=== PATIENT | male | born 1965 | race Caucasian/White ===

== ENCOUNTER 2020-03-29 20:20 | Emergency (ER) | payer OTHER, SELFPAY ==
--- NOTE | 2020-03-29 | ECG_ITS ---
Test Reason : CHEST PAIN Blood Pressure : / mmHG Vent. Rate : 087 BPM Atrial Rate : 087 BPM P-R Int : 156 ms QRS Dur : 082 ms QT Int : 398 ms P-R-T Axes : 056 -21 089 degrees QTc Int : 478 ms Sinus rhythm with frequent Premature ventricular complexes Abnormal ECG No previous ECGs available Referred By: Generic ED Physician Electronically Signed By:SRUTHI GAMA MD
--- NOTE | 2020-03-29 | XR_ITS ---
EXAMINATION: XR CHEST CLINICAL INFORMATION: Chest pain COMPARISON: None TECHNIQUE: Frontal view of the chest was obtained. FINDINGS: Heart size borderline enlarged. Some atelectasis seen in the posterior basal segment of the left lower lobe. No gross consolidations or effusions or lung masses are seen. There is no evidence of CHF. XR/XR chest 1V IMPRESSION: Left basilar atelectasis.
[2020-03-29 20:24] VITALS: BP 160/80; PULSE 50; RESP 16; TEMP 37; O2SAT 95; BMI 51.7
--- NOTE | 2020-03-29 20:58 | PC.NURSE ---
EKG COMPLETED IN TRIAGE BY THIS RN. REVIEWED AND SIGNED BY ED MD.
--- NOTE | 2020-03-29 21:41 | ED.CHESTPAIN ---
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 This chest pain has been constant and is not associated with any headaches, dizziness, shortness of breath, GI symptoms, or symptoms. Patient is notable for having 1 kidney after donating the other to his mother many years ago and states he does not have any medical conditions, however he has not followed up with a primary care doctor since the kidney donation. Related Data Allergies Allergy/AdvReac Type Severity Reaction Status Date / Time No Known Allergies Allergy Verified 03/29/20 20:22 Review of Systems Review of Systems: Pertinent positives and negatives as stated in HPI 10 point review of systems is otherwise negative. PMFSH Past Medical History Source: nursing notes reviewed Social History Social History Alcohol intake: never Smoked in Last 30 Days: No Use of substances other than those prescribed or required for medical reasons: No Advance Directives: No Advance Directives Information Provided: Yes Physical Exam Vital Signs: Vital Signs: Last Vital Signs Temp 98.1 F 03/29/20 22:00 Pulse 62 03/30/20 00:08 Resp 16 03/30/20 00:08 BP 159/52 H 03/30/20 00:08 Pulse Ox 96 03/30/20 00:08 Body Mass Index 51.7 VITAL SIGNS: Reviewed. GENERAL: Well developed, well nourished, in no acute distress. HEAD: Normocephalic/atraumatic, EYES: PERRLA, EOMI intact without pain, no nystagmus/pallor/icterus noted EARS: Ext canals without abnormality, TMs non-bulging and non-erythematous NOSE: Nares patent bilateral OROPHARYNX: no oral lesions noted, posterior pharynx clear and non-erythematous without noted tonsillar enlargement/erythema/exudates NECK: Supple, no adenopathy LUNGS: Normal breath sounds. No adventitious sounds or accessory muscle use. SpO2<95> CARDIOVASCULAR: Regular rate and rhythm without noted murmurs, no JVD or lower extremity edema. ABDOMEN: Soft, non-tender, non-distended with bowel sounds. No rigidity. No guarding. No palpable masses or hernias noted MUSCULOSKELETAL: No tenderness, deformities, or effusions noted on gross inspection. EXTREMITIES: No cyanosis, clubbing or edema. SKIN: Inspection of the skin reveals no rashes, ulcerations, jaundice, pallor, or petechiae. NEUROLOGIC: Alert and oriented x 4. Strength and sensation to light touch were grossly intact x 4. Course Course Course Narrative: This is a 54-year-old male with history and clinical presentation consistent with likely musculoskeletal strain but will rule out pulmonary/ cardiac etiologies. On review of all laboratory investigation there was a noted elevation of the D-dimer in follow-up CTA of the chest was negative for any acute PE or pulmonary pathology. No evidence infection, anemia and serial troponins although mildly elevated are without evidence of ischemic changes on EKG. patient was strongly encouraged to follow-up with a primary care provider but was otherwise given instructions for muscle strain to the anterior chest wall. He was provided with strict return precautions. MDM - Chest Pain Lab Data Result diagrams: 03/29/20 21:42 03/29/20 21:42 Labs: Lab Results 03/29/20 03/29/20 03/29/20 Range/Units 21:42 21:42 21:42 WBC 10.7 (4.8-10.8) X10*3/uL RBC 5.30 (4.60-5.80) X10*6/uL Hgb 16.3 (14.0-18.0) g/dl Hct 46.0 (42-52) % MCV 86.8 (80-98) fL MCH 30.8 (27.0-33.0) pg MCHC 35.4 (31.0-36.0) g/dl RDW 13.0 (11.0-16.0) % Plt Count 206 (160-400) X10*3/uL MPV 10.4 (9.4-12.4) fL Immature Gran % (Auto) 0.3 (0.0-0.4) % Neut % (Auto) 69.0 (45-73) % Lymph % (Auto) 19.7 L (20-40) % Calloway % (Auto) 6.3 (2-11) % Eos % (Auto) 4.3 H (0-4) % Baso % (Auto) 0.4 (0-2) % Lymph # (Auto) 2.1 (1.2-4.9) X10*3/uL Calloway # (Auto) 0.7 (0.1-1.2) X10*3/uL Eos # (Auto) 0.5 H (0.0-0.4) X10*3/uL Baso # (Auto) 0.0 (0.0-0.2) X10*3/uL Abs Immat Gran (auto) 0.03 (0.00-0.03) X10*3/uL Absolute Neuts (auto) 7.4 (2.0-8.3) X10*3/uL Absolute Nucleated RBC 0.000 (0.0-0.012) X10*3/uL Nucleated RBC % (auto) 0.0 (0.0-0.2) /100WBC D-Dimer 399 NG/ML Sodium 139 (135-145) mmol/L Potassium 5.0 (3.3-5.1) mmol/l Chloride 104 (96-108) mmol/L Carbon Dioxide 24 (22-29) mmol/L Anion Gap 16 (12-20) BUN 17 H (9-16) mg/dL Creatinine 1.16 (0.5-1.4) mg/dL Estim Creat Clear Calc 108.2 Estimated GFR > 60 Random Glucose 90 (60-115) mg/dL Calcium 9.0 (8.4-10.2) mg/dL Total Bilirubin 0.8 (0.0-1.0) mg/dL AST 38 H (5-37) U/L ALT 36 (0-40) U/L Alkaline Phosphatase 72 (39-117) U/L Troponin I High Sens (<3.5-35.0) ng/L Total Protein 8.0 (6.5-8.0) g/dL Albumin 4.4 (3.5-5.0) g/dL 03/29/20 03/30/20 Range/Units 21:42 01:02 WBC (4.8-10.8) X10*3/uL RBC (4.60-5.80) X10*6/uL Hgb (14.0-18.0) g/dl Hct (42-52) % MCV (80-98) fL MCH (27.0-33.0) pg MCHC (31.0-36.0) g/dl RDW (11.0-16.0) % Plt Count (160-400) X10*3/uL MPV (9.4-12.4) fL Immature Gran % (Auto) (0.0-0.4) % Neut % (Auto) (45-73) % Lymph % (Auto) (20-40) % Calloway % (Auto) (2-11) % Eos % (Auto) (0-4) % Baso % (Auto) (0-2) % Lymph # (Auto) (1.2-4.9) X10*3/uL Calloway # (Auto) (0.1-1.2) X10*3/uL Eos # (Auto) (0.0-0.4) X10*3/uL Baso # (Auto) (0.0-0.2) X10*3/uL Abs Immat Gran (auto) (0.00-0.03) X10*3/uL Absolute Neuts (auto) (2.0-8.3) X10*3/uL Absolute Nucleated RBC (0.0-0.012) X10*3/uL Nucleated RBC % (auto) (0.0-0.2) /100WBC D-Dimer NG/ML Sodium (135-145) mmol/L Potassium (3.3-5.1) mmol/l Chloride (96-108) mmol/L Carbon Dioxide (22-29) mmol/L Anion Gap (12-20) BUN (9-16) mg/dL Creatinine (0.5-1.4) mg/dL Estim Creat Clear Calc Estimated GFR Random Glucose (60-115) mg/dL Calcium (8.4-10.2) mg/dL Total Bilirubin (0.0-1.0) mg/dL AST (5-37) U/L ALT (0-40) U/L Alkaline Phosphatase (39-117) U/L Troponin I High Sens 7.8 9.3 (<3.5-35.0) ng/L Total Protein (6.5-8.0) g/dL Albumin (3.5-5.0) g/dL ECG Data ECG #1: Attestation: I personally reviewed and interpreted this ECG as follows: Prior ECG tracings: not available for review Interpretation: Sinus rhythm with PVCs, HR- 87, no evidence of acute ischemia, ND/QRS are within normal limits. Discharge Plan Discharge Clinical Impression: Muscle strain of anterior chest wall Patient Disposition: Home, Self-Care Instructions: Muscle Strain (ED) Additional Instructions: 1. Tylenol 1000 mg, por v?a oral, cada 6 horas seg?n sea necesario para controlar el dolor. No exceda los 4000 mg en 24 horas. 2. Recomendar?a la aplicaci?n de parches de lidoca?na, estos est?n disponibles sin receta en todos los [facility] / [facility], y deben aplicarse en el ?pati de m?xima sensibilidad frederick se indica en el empaque exterior. 3. Por favor, establezca la atenci?n con un proveedor de atenci?n primaria lo antes posible para nadya reevaluaci?n. El paciente y / o la chinmay reconocen que comprenden los resultados (seg?n corresponda), el diagn?stico, el plan de tratamiento, la necesidad de seguimiento y los s?ntomas que deber?an impulsar el regreso a la kira de emergencias. Referrals: Physician,None [Primary Care Provider] - 2 days (Re-evaluation of muscle strain to left anterior chest wall) Print Language: Montenegrin
[2020-03-29 21:43] VITALS: BP 179/71; PULSE 92; RESP 20; O2SAT 97
[2020-03-29 21:52] LABS: MANUAL DIFF FLAG NO
[2020-03-29 21:53] LABS: Basophils Percent Auto 0.4 % (0-2); Eosinophils Absolute Auto 0.5 X10*3/uL (0.0-0.4); Eosinophils Percent Auto 4.3 % (0-4); Hemoglobin 16.3 g/dl (14.0-18.0); Imm Gran Abs Auto 0.03 X10*3/uL (0.00-0.03); Imm Gran Pct Auto 0.3 % (0.0-0.4); Lymphocytes Absolute Auto 2.1 X10*3/uL (1.2-4.9); Lymphocytes Percent Auto 19.7 % (20-40); Mean Corpuscular HGB Conc 35.4 g/dl (31.0-36.0); Mean Corpuscular Hemoglobin 30.8 pg (27.0-33.0); Mean Corpuscular Volume 86.8 fL (80-98); Mean Platelet Volume 10.4 fL (9.4-12.4); Monocytes Absolute Auto 0.7 X10*3/uL (0.1-1.2); Monocytes Percent Auto 6.3 % (2-11); Neutrophils Absolute Auto 7.4 X10*3/uL (2.0-8.3); Platelet Count 206 X10*3/uL (160-400); White Blood Count 10.7 X10*3/uL (4.8-10.8)
[2020-03-29 22:00] VITALS: BP 156/62; PULSE 84; RESP 20; TEMP 36.7; O2SAT 95
[2020-03-29] MEDS: Acetaminophen 325 MG TABLET 975 MG PO (22:29)
[2020-03-29 22:30] LABS: Troponin-I High Sensitivity 7.8 ng/L (<3.5-35.0)
--- NOTE | 2020-03-29 22:38 | PC.NURSE ---
patient a&ox3, ekg performed, iv inserted, labs drawn, cardiac/vascular sonographer nsr with frequent pvcs, vitals stable, pt medicated per order, will continue to monitor.
[2020-03-29 22:40] LABS: D Dimer 399 NG/ML
[2020-03-29 23:14] LABS: Alanine Aminotransferase 36 U/L (0-40); Albumin Level 4.4 g/dL (3.5-5.0); Alkaline Phosphatase 72 U/L (39-117); Anion Gap 16 (12-20); Aspartate Amino Transferase 38 U/L (5-37); Bilirubin Total 0.8 mg/dL (0.0-1.0); Blood Urea Nitrogen 17 mg/dL (9-16); Carbon Dioxide 24 mmol/L (22-29); Chloride 104 mmol/L (96-108); Creatinine Clr Calc Pharmacy 108.2; Estimated Glomerular Filt Rate > 60; Glucose Random 90 mg/dL (60-115); Sodium 139 mmol/L (135-145)
--- NOTE | 2020-03-29 23:36 | CT_ITS ---
EXAMINATION: CT ANGIOGRAM CHEST CLINICAL INFORMATION: Chest discomfort COMPARISON: Chest x-ray 03/29/2020 TECHNIQUE: Multiple axial images were obtained through the chest after the administration of 65 mL of Omnipaque 350 intravenous contrast. Extensive vascular post-processing including two-dimensional and three-dimensional reformatted images were created and reviewed on an independent workstation. This CT examination was performed using dose optimization techniques as appropriate, variously including the following: *Automated exposure control *Adjustment of mA and/or kV according to patient size (this includes techniques or standardized protocols for targeted exams where dose is matched to indication/reason for exam; i.e. extremities or head) *Use of iterative reconstruction technique DLP: 564 mGy-cm FINDINGS: No filling defects are seen in the main, lobar, or segmental pulmonary arteries to suggest the presence of pulmonary emboli. Assessment of the distal vasculature is suboptimal due to patient body habitus. No regions of consolidation bilaterally. No pneumothorax or pleural effusion. Visualized thyroid gland appears grossly unremarkable. There are subcentimeter mediastinal lymph nodes within the range of normal variation. Cardiac size is within normal limits; no pericardial effusion. The aorta is unremarkable. No axillary lymphadenopathy is present. Visualized portions of the upper abdomen are within normal limits. No acute osseous findings are seen. Degenerative changes are noted in the spine. CT/CT angio chest IMPRESSION: No pulmonary embolus identified.
[2020-03-30 00:08] VITALS: BP 159/52; PULSE 62; RESP 16; O2SAT 96
[2020-03-30] MEDS: 0.9 % Sodium Chloride 1,000 ML 1000 ML IV (00:08)
--- NOTE | 2020-03-30 00:12 | PC.NURSE ---
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 pt still experiencing left sided chest pain 5/10. pain increased with movement. trigeminy of pvc's on monitor.
[2020-03-30] MEDS: iohexoL 350 MG/ML 100 ML INFUS..BTL 65 ML IV (00:19)
[2020-03-30 01:44] LABS: Troponin-I High Sensitivity 9.3 ng/L (<3.5-35.0)
== END 2020-03-30 02:32 | disposition home or self-care (01) ==
PROVIDERS: Emergency Provider Student in an Organized Health Care Education/Training Program
DX: R07.89 Other chest pain (principal)
CPT/HCPCS: 36415; 71045; 71275; 80053; 84484; 85025; 85379; 93005; 96360; 99284; Q9967

== ENCOUNTER 2023-12-27 11:54 | Emergency (ER) | payer OTHER, SELFPAY ==
--- NOTE | ~2023-12-27 | US_ITS ---
EXAMINATION: US TRIPLEX UPPER EXTREMITY, LEFT CLINICAL INFORMATION: Unilateral arm swelling COMPARISON: None available. TECHNIQUE: Color-flow triplex imaging with spectral analysis and compression Doppler was performed on the left upper extremity. FINDINGS: The left internal jugular, subclavian, and axillary veins are patent and free of thrombus. The imaged segment of the left brachiocephalic vein is patent. Spectral doppler waveforms are normal. The brachial, basilic, cephalic, radial, and ulnar veins are patent and compressible. US/US venous duplex UE LT IMPRESSION: No evidence of deep venous thrombosis involving the left upper extremity. Electronically signed by: Kemal Colindres MD 12/27/2023 02:22 PM EDT
--- NOTE | ~2023-12-27 | XR_ITS ---
EXAMINATION: XR ELBOW, LEFT CLINICAL INFORMATION: Atraumatic pain COMPARISON: None available. TECHNIQUE: Three views of the left elbow. FINDINGS: No fracture. No dislocation. Joint space is normal. No joint effusion. Small spur at the olecranon at the insertion of the triceps tendon. XR/XR elbow LT min 3V IMPRESSION: Normal left elbow. Electronically signed by: Manuelito Schneider MD 12/27/2023 06:07 PM EDT RP
--- NOTE | ~2023-12-27 | XR_ITS ---
EXAMINATION: XR WRIST, LEFT CLINICAL INFORMATION: Pain COMPARISON: None available. TECHNIQUE: Four views of the left wrist. FINDINGS: No acute fracture, subluxation, or suspicious focal lesion. No abnormal soft tissue calcification. No significant erosive changes. There is soft tissue swelling XR/XR wrist LT min 3V IMPRESSION: No fracture or subluxation. There is soft tissue swelling Electronically signed by: Torres Robison MD 12/27/2023 06:08 PM EDT
[2023-12-27 12:39] VITALS: BP 152/78; PULSE 82; RESP 18; TEMP 36.8; O2SAT 96; BMI 51.9
--- NOTE | 2023-12-27 12:39 | ED_ITS ---
HPI - Extremity Injury (Upper) General Chief Complaint: Extremity Problem Stated Complaint: R arm swelling/pain Time Seen by Provider: 12/27/23 16:07 History of Present Illness ED Provider: Fernando BEE narrative: The patient is a 58-year-old male who says that over the last 2 weeks he has had worsening pain in his left wrist. There was no injury associated with the pain. The pain has gotten worse over the last 2 weeks and he feels it has also spread to his left elbow. He also had no left elbow injury. He does not think he has had a fever. He does not know of any past medical history but he has not seen a doctor in a long time and he has no primary care doctor. The patient has a history of gout. In the past he has only had gout in his legs. He has never had anything like gout in his upper extremeties. The patient has only one kidney. He donated a kidney to a family member. Related Data Previous Rx's ?Medication ?Instructions ?Recorded morphine 15 mg immediate release 15 mg PO Q6H PRN pain #12 tabs 12/27/23 tablet prednisone 5 mg tablet 5 mg PO DIRECTED #78 tabs 12/27/23 Allergies Allergy/AdvReac Type Severity Reaction Status Date / Time No Known Allergies Allergy Verified 12/27/23 12:42 Review of Systems 2 Review of Systems: Yes all other systems are reviewed and are negative [facility] Social History Social History Alcohol intake: never Advance Directives: No Advance Directives Information Provided: Yes Physical Exam 2 Vital Signs: Vital Signs: Last Vital Signs Temp 98.3 F 12/27/23 18:31 Pulse 59 12/27/23 18:31 Resp 18 12/27/23 18:31 BP 159/84 H 12/27/23 18:31 Pulse Ox 97 12/27/23 18:31 O2 Del Method Room Air 12/27/23 18:31 BMI result Body Mass Index 51.9 Const: Other: THe patient is a large 58 year-old male. BMI is 51.9. He is awake, alert, pleasant cooperative. Orientation/consciousness: patient oriented x3 HEENT: Head: Yes normal to inspection Mouth: Normal oral and palatal mucosa present and moist mucous membranes Eyes: General: appearance normal, both eyes and all related structures E yelids: Yes eyelids normal Conjunctivae: conjunctivae normal Pupils: E qual, round and reactive pupils present EOM: EOMs intact bilaterally Neck: Neck: Yes full ROM and Yes no lymphadenopathy Resp: Effort & Inspection: normal respiratory effort Auscultation: clear to auscultation bilaterally Cardio: Other: No murmur Rate: regular rate Rhythm: regular rhythm Heart sounds: S1 normal heart sound present and S2 normal heart sound present Skin: Other: Mild generalized soft tissue swelling to the left wrist and forearm. No erythema. Neuro: Other: THe patient has intect motor and sensory function of the left arm except as limited by pain. General: patient oriented x3 Cranial nerves: Yes CN's II-XII intact bilaterally and Yes Equal, round and reactive pupils present Extrem: Other: THere is some mild generalized tenderness and swelling at the left wrist and forearm and slide swelling in the area of the left olecranon bursa. The patient seems most tender at the left wrist. Range of motion of the left is reduced but he is able to put the wrist through a moderate range of motion. There does not seem to have a clear area of specific focal tenderness. ?The patient has some mild tenderness of the left forearm generally. He has some mild swelling of the left olecranon bursa but this is quite minimal. No clear erythema at any location on the left arm.. Course Course Course Narrative: This is a Rapid Medical Examination (RME) performed by Graeme Carty PA-C in triage. Full HPI, ROS, assessment and treatment plan per primary provider in the Main ED. 58 yo male here for eval of LUE swelling x 2 wks. reports swelling started in his left wrist and is now extending up his extremity to his left elbow. no injury/ trauma. denies known tick or insect bites. denies hx of similar. + noted swelling to LUE from digits to elbow. ttp. Plan: labs, venous duplex Medications Administered Discontinued Medications Generic Name Dose Route Start Last Admin Trade Name Freq PRN Reason Stop Dose Admin Prednisone 60 mg 12/27/23 18:15 12/27/23 18:30 Prednisone 20 Mg Tablet PO 12/27/23 18:16 Not Given ONCE ONE Medical Decision Making Medical Decision Making MDM Narrative: The patient is a 58-year-old male with a history of gout. He also has on;y one kidney. In previous episodes of gout he has only had manifestations in his legs. He now presents with a traumatic left arm pain that seems maximal around the left wrist which has been getting worse over the last two weeks. He has not had a fever. An ultrasound of the left arm was ordered at triage which is negative. X-rays of the left wrist and elbow are negative. His uric acid is elevated at 10.2. He has a white count of 9.7 with a normal differential. ?ESR is 30. ?CRP is 3.31. Given the absence of fever and the absence of an elevation of his white count or left shift and the absence of any erythema I think infection is less likely in this patient. He does not consider himself at risk for tick-borne illness. He says he does not go in the [place] and does not consider himself at risk for exposure to ticks in anyway. I suspect that this is probably a manifestation of some form of gout. He will be started on prednisone he will be given a sling. He's given a prescription for morphine tablets to use as needed for pain. He does not have a primary care doctor. He is given information about local primary care offices and hopes of getting a new primary care doctor. He will be placed on a date tapering course of prednisone starting at 60 mg and going down 5 mg each day until done. He ?should return if worse. Lab Data 12/27/23 12:54 12/27/23 12:54 Labs: Lab Results 12/27/23 Range/Units 12:54 WBC 9.7 (4.8-10.8) X10*3/uL RBC 5.16 (4.60-5.80) X10*6/uL Hgb 15.2 (14.0-18.0) g/dl Hct 43.4 (42.0-52.0) % MCV 84.1 (80.0-98.0) fL MCH 29.5 (27.0-33.0) pg MCHC 35.0 (31.0-36.0) g/dl RDW 14.1 (11.0-16.0) % Plt Count 238 (160-400) X10*3/uL MPV 9.6 (9.4-12.4) fL Immature Gran % (Auto) 0.3 (0.0-0.4) % Neut % (Auto) 67.1 (45-73) % Lymph % (Auto) 20.0 (20-40) % Wheeler % (Auto) 8.6 (2-11) % Eos % (Auto) 3.5 (0-4) % Baso % (Auto) 0.5 (0-2) % Lymph # (Auto) 1.9 (1.2-4.9) X10*3/uL Wheeler # (Auto) 0.8 (0.1-1.2) X10*3/uL Eos # (Auto) 0.3 (0.0-0.4) X10*3/uL Baso # (Auto) 0.1 (0.0-0.2) X10*3/uL Abs Immat Gran (auto) 0.03 (0.00-0.03) X10*3/uL Absolute Neuts (auto) 6.5 (2.0-8.3) x10*3/uL Absolute Nucleated RBC 0.000 (0.0-0.012) X10*3/uL Nucleated RBC % (auto) 0.0 (0.0-0.2) /100WBC ESR 30 H (0-15) MM/HR Sodium 135 (135-145) mmol/L Potassium 4.4 (3.3-5.1) mmol/L Chloride 104 (96-108) mmol/L Carbon Dioxide 24 (22-29) mmol/L Anion Gap 11 L (12-20) BUN 21 H (9-16) mg/dL Creatinine 1.33 (0.5-1.4) mg/dL Estim Creat Clear Calc 90.2 Estimated GFR 56 Random Glucose 108 (60-115) mg/dL Uric Acid 10.2 H (3.4-7.0) mg/dL Calcium 10.1 D (8.4-10.2) mg/dL Magnesium 1.9 (1.6-2.6) mg/dL Total Bilirubin 0.4 (0.0-1.0) mg/dL AST 15 (5-37) U/L ALT 15 (0-40) U/L Alkaline Phosphatase 99 (39-117) U/L C-Reactive Protein 3.31 H (< or = 0.50) mg/dL B-Natriuretic Peptide < 10 (<100) pg/mL Total Protein 8.6 H (6.5-8.0) g/dL Albumin 4.1 (3.5-5.0) g/dL Discharge Plan Discharge Clinical Impression: Pain and swelling of left wrist, Gout, Hyperuricemia Patient Disposition: Home, Self-Care Instructions: Gout (ED) Additional Instructions: I believe that the pain in your left arm and wrist is probably because of something like gout. You has been started on a course of prednisone, a steroid medication which should help reduce the inflammation and pain of the gout. Please take the entire course of prednisone until done. This is a tapering course of medication. You will be taking 12 tablets tomorrow, then 11 tablets of the next day, then 1 tablet less per day until done. You may take 2 extra-strength acetaminophen (Tylenol) up to 3 times a day as needed for pain. In addition I have sent a prescription for morphine tablets that you may use as well as needed for pain. Please try to use these mostly at night or when you are resting and really need pain relief. No driving on morphine. Use the sling to rest the arm. Please work to get a regular primary care doctor. You have been given some information about primary care practices in the area. Return to the emergency room if significantly worse. Prescriptions: New prednisone 5 mg tablet 5 mg PO DIRECTED Qty: 78 0RF Rx Instructions: Take 12 tablets by mouth for 1 day, then take 11 tablets by mouth for 1 day, then take 10 tablets by mouth for 1 day, continue to take 1 tablet less per day until done. morphine 15 mg tablet 15 mg PO Q6H PRN (Reason: pain) Qty: 12 0RF Rx Instructions: Partial Fill upon patient request. Interventions: ED Discharge Assessment Last Done: 12/27/23 18:31 Discharge Date/Time: 12/27/23 18:36 Print Language: Serbian
[2023-12-27 12:58] LABS: MANUAL DIFF FLAG NO
[2023-12-27 13:00] LABS: Basophils Absolute Auto 0.1 X10*3/uL (0.0-0.2); Basophils Percent Auto 0.5 % (0-2); Eosinophils Absolute Auto 0.3 X10*3/uL (0.0-0.4); Eosinophils Percent Auto 3.5 % (0-4); Hematocrit 43.4 % (42.0-52.0); Hemoglobin 15.2 g/dl (14.0-18.0); Imm Gran Abs Auto 0.03 X10*3/uL (0.00-0.03); Imm Gran Pct Auto 0.3 % (0.0-0.4); Lymphocytes Absolute Auto 1.9 X10*3/uL (1.2-4.9); Mean Corpuscular Hemoglobin 29.5 pg (27.0-33.0); Mean Corpuscular Volume 84.1 fL (80.0-98.0); Mean Platelet Volume 9.6 fL (9.4-12.4); Monocytes Absolute Auto 0.8 X10*3/uL (0.1-1.2); Monocytes Percent Auto 8.6 % (2-11); Neutrophils Absolute Auto 6.5 x10*3/uL (2.0-8.3); Neutrophils Percent Auto 67.1 % (45-73); Platelet Count 238 X10*3/uL (160-400); Red Blood Count 5.16 X10*6/uL (4.60-5.80); Red Cell Distribution Width 14.1 % (11.0-16.0); White Blood Count 9.7 X10*3/uL (4.8-10.8)
[2023-12-27 13:13] LABS: Alanine Aminotransferase 15 U/L (0-40); Albumin Level 4.1 g/dL (3.5-5.0); Alkaline Phosphatase 99 U/L (39-117); Anion Gap 11 (12-20); Aspartate Amino Transferase 15 U/L (5-37); Bilirubin Total 0.4 mg/dL (0.0-1.0); Blood Urea Nitrogen 21 mg/dL (9-16); Calcium 10.1 mg/dL (8.4-10.2); Carbon Dioxide 24 mmol/L (22-29); Chloride 104 mmol/L (96-108); Creatinine Clr Calc Pharmacy 90.2; Estimated Glomerular Filt Rate 56; Glucose Random 108 mg/dL (60-115); Magnesium 1.9 mg/dL (1.6-2.6); Potassium 4.4 mmol/L (3.3-5.1); Sodium 135 mmol/L (135-145); Total Protein 8.6 g/dL (6.5-8.0)
[2023-12-27 13:18] LABS: B Type Natriuretic Peptide < 10 pg/mL (<100)
[2023-12-27 14:59] LABS: Uric Acid 10.2 mg/dL (3.4-7.0)
--- OUTSIDE RECORDS SUMMARY | 2023-12-27 15:46 | XMS_ITS | Continuity of Care Document ---
Author Organization [facility] Address [address] [place] [address]- Care Team Providers Care Technical Training Instructor Name Role Phone Not on Staff, PCP Primary Care Physician Unavail able Encounter [facility] [place](s): 06/09/21 - 06/16/21 [facility] [address] [place], [place] [address] Attending Physician: Oneyda Ryan MD Referring Physician: Oneyda Ryan MD Allergies, Adverse Reactions, Alerts No Known Allergies Vital Signs Most recent to oldest [Reference Range]: 1 Oxygen Saturation [94-100 %] 96 % (06/09/21 4:55 PM) Pulse Rate [55-90 bpm] 98 bpm *H* (06/09/21 4:55 PM) Blood Pressure [90-138/55-84 mm Hg] 119/ 69mm Hg (06/09/21 4:55 PM) Respiratory Rate [16-30 br/min] 24 br/mi n (06/09/21 4:55 PM) Temperature [96.8-100.4 DegF] 98.7 DegF (06/09/21 4:55 PM) Mode of Delivery (Oxygen) Room air (06/09/21 4:55 PM) Blood pressure sites Arm, left (06/09/21 4:55 PM) Temperature Route Temporal (06/09/21 4:55 PM)
--- NOTE | 2023-12-27 15:47 | PC.NURSE ---
Pt comes from home for increased swelling to left wrist/arm starting 3 weeks ago. Pt denies trauma/exertion recently, no hx of bloodclots, numbness/tingling radiating up left extremity. +Pulses, swelling noted to left wrist. A/ox4, no increased wob/sob, lung sounds cta bilaterally, s1 and s2 heard, abdomen soft, non-tender. Call franz within reach, all needs met at this time.
[2023-12-27 16:48] VITALS: BP 159/89; PULSE 59; RESP 18; TEMP 36.7; O2SAT 97
[2023-12-27 16:51] LABS: C Reactive Protein 3.31 mg/dL (< or = 0.50)
[2023-12-27 18:19] LABS: Erythrocyte Sedimentation Rate 30 MM/HR (0-15)
[2023-12-27 18:31] VITALS: BP 159/84; PULSE 59; RESP 18; TEMP 36.8; O2SAT 97
== END 2023-12-27 18:36 | disposition home or self-care (01) ==
PROVIDERS: Physician Assistant Medical; Emergency Provider Emergency Medicine
DX: M25.532 Pain in left wrist (principal); M10.032 Idiopathic gout, left wrist; M25.522 Pain in left elbow; R60.0 Localized edema; Z79.899 Other long term (current) drug therapy
CPT/HCPCS: 36415; 73080; 73110; 80053; 83735; 83880; 84550; 85025; 85652; 86140; 93971; 99284